=== PATIENT | female | born 1950 | race Caucasian/White ===

== ENCOUNTER → 2016-04-22 | Outpatient (CLI) | payer OTHER ==
[~2016-04-22] MED LIST: ASPI-664 PO; ATOR40TA68 PO; CALC500T PO; HYDR-3498 PO; LOSA1TAB20 PO; METF500T4 PO; PHEN-538 PO; RIVA10TA PO
--- NOTE | 2016-04-22 14:34 | RADRPT ---
PROCEDURE: XR pelvis/left hip. CLINICAL INDICATION: Hip pain TECHNIQUE: AP pelvis/AP and lateral left hip views performed COMPARISON: No prior studies are available for comparison. FINDINGS: There is mild bilateral hip osteoarthrosis. This is associated with joint space narrowing and osteop hytosis. There is normal mineralization. No fractures or osseous lesions are identified. The soft tissues are unremarkable. Moderate to severe L5-S1 degenerative disk disease and facet arthrosis IMPRESSION: Mild bilateral hip osteoarthrosis Moderate to severe L5-S1 degenerative disk disease and facet arthrosis. RPTAT: [facility] .Sudheer Eli MD, Date Time Electronically viewed and signed by .Sudheer Eli MD, on 04/22/2016 14:34 .B/
== END | disposition home or self-care (01) ==
LOC: HKI 13:42
PROVIDERS: ATTEND Orthopaedic Surgery
DX: M70.62 Trochanteric bursitis, left hip (principal); Z96.652 Presence of left artificial knee joint
CPT/HCPCS: 73502; Z7500; G0463